=== PATIENT | male | born 1995 | race Caucasian/White ===

== ENCOUNTER 2019-08-18 16:07 | Emergency (ER) | payer BC ==
[~2019-08-18] VITALS: Ht 180.3 cm; Wt 72.6 kg
[2019-08-18] MEDS ORDERED: KEFLEX500 M1 PO (16:58)
[2019-08-18 17:20] VITALS: BP 136/89
== END 2019-08-18 17:21 | disposition home or self-care (01) ==
LOC: M.ERS 16:07
DX: S91.112A Laceration without foreign body of left great toe without damage to nail, initial encounter (principal); F17.210 Nicotine dependence, cigarettes, uncomplicated; Z90.49 Acquired absence of other specified parts of digestive tract; Z88.0 Allergy status to penicillin; X58.XXXA Exposure to other specified factors, initial encounter; Y93.89 Activity, other specified; Y92.89 Other specified places as the place of occurrence of the external cause; Y99.8 Other external cause status